=== PATIENT | female | born 1985 | race Caucasian/White ===

== ENCOUNTER 2017-02-26 18:32 | Emergency (ER) | payer BC ==
[~2017-02-26] VITALS: Ht 167.6 cm; Wt 68.2 kg
[2017-02-26 18:35] VITALS: TEMP 98
[2017-02-26] MEDS ORDERED: LEXAPRO20 MG PO (18:37)
[2017-02-26] MEDS ORDERED: SEROQUEL300 MG PO (18:38)
[2017-02-26] MEDS ORDERED: SEROQUEL50 MG PO (18:38)
[2017-02-26] MEDS ORDERED: MINIPRESS2 MG (18:38)
[2017-02-26 18:53] LABS: BASO % 0.5 % (0.0-2.0); EOS # 0.2 (0.0-0.7); EOS % 3.4 % (0-4.0); GRAN # 3.3 (1.4-6.5); GRAN % 57.8 % (42.2-75.2); LYMPH # 1.7 (1.2-3.4); LYMPH % 29.9 % (20.0-51.0); MEAN CELL VOLUME 73 fl (80.0-100.0); MEAN CORPUSCULAR HGB CONC 31 g/dl (33.0-37.0); MEAN PLATELET VOLUME 9.5 fl (7.4-10.4); MONO # 0.5 (0.1-0.6); PLATELET COUNT 319 K/mm3 (130-400); RED BLOOD COUNT 4.42 M/mm3 (4.10-5.30); REDCELL DISTRIBUTION WIDTH-CV 15.4 % (11.5-14.5); WHITE BLOOD COUNT 5.6 K/mm3 (4.8-10.8)
[2017-02-26 19:00] LABS: HEMATOCRIT 32.1 % (37.0-47.0); HEMOGLOBIN 9.9 g/dl (12.5-16.0); MEAN CORPUSCULAR HEMOGLOBIN 22 pg (27.0-31.0)
[2017-02-26 19:07] LABS: ANION GAP 15 mmol/L (7-16); BLOOD UREA NITROGEN 13 mg/dL (7-17); CARBON DIOXIDE 23 mmol/L (22-30); CHLORIDE 105 mmol/L (98-107); CREATININE, serum 0.72 mg/dL (0.52-1.25); GLUCOSE 85 mg/dL (74-106); POTASSIUM 3.5 mmol/L (3.4-5.0); SODIUM 142 mmol/L (137-145)
[2017-02-26 19:23] LABS: PROLACTIN 19.2 ng/mL (3.0-18.6)
[2017-02-26 19:28] LABS: TROPONIN-I < 0.012 ng/mL (0.000-0.034)
[2017-02-26 19:57] LABS: AMPHETAMINE URINE NEGATIVE; BARBITURATES URINE NEGATIVE; BENZODIAZEPINES URINE NEGATIVE; BUPRENORPHINE URINE NEGATIVE; METHADONE URINE NEGATIVE; OPIATES URINE NEGATIVE; OXYCODONE URINE NEGATIVE; PHENCYCLIDINE URINE NEGATIVE; PROPOXYPHENE URINE NEGATIVE; THC CANNABINOIDS URINE NEGATIVE
[2017-02-26 20:29] VITALS: BP 124/87; PULSE 76
== END 2017-02-26 20:30 | disposition home or self-care (01) ==
LOC: COL.ER 18:32
PROVIDERS: Emergency Medicine
DX: R55 Syncope and collapse (principal); R07.9 Chest pain, unspecified; R53.1 Weakness; R51 Headache; F32.9 Major depressive disorder, single episode, unspecified; F41.9 Anxiety disorder, unspecified
CPT/HCPCS: J7030

== ENCOUNTER 2017-06-05 23:21 | Emergency (ER) | payer BC ==
[~2017-06-05] VITALS: Ht 162.6 cm; Wt 72.7 kg
[~2017-06-05 23:21] MED LIST: LEXAPRO20 MG PO; MINIPRESS2 MG; SEROQUEL300 MG PO; SEROQUEL50 MG PO
[2017-06-05 23:25] VITALS: TEMP 98
[2017-06-05] MEDS ORDERED: MINIPRESS 1M1 MG/CAP PO (23:33)
[2017-06-05] MEDS ORDERED: LEXAPRO 5MG5 MG PO (23:33)
[2017-06-05] MEDS ORDERED: PREDNISONE10 MG PO (23:34)
[2017-06-05] MEDS ORDERED: BRINTELLIX20 (23:35)
[2017-06-05] MEDS ORDERED: SEROQUEL300 MG PO (23:36)
[2017-06-05] MEDS ORDERED: FLEXERIL5 MG PO (23:37)
[2017-06-05 23:51] LABS: HEMATOCRIT 37.1 % (37.0-47.0); MEAN CELL VOLUME 80 fl (80.0-100.0); MEAN CORPUSCULAR HEMOGLOBIN 25 pg (27.0-31.0); MEAN CORPUSCULAR HGB CONC 32 g/dl (33.0-37.0); MEAN PLATELET VOLUME 8.7 fl (7.4-10.4); PLATELET COUNT 196 K/mm3 (130-400); RED BLOOD COUNT 4.65 M/mm3 (4.10-5.30); WHITE BLOOD COUNT 5.1 K/mm3 (4.8-10.8)
[2017-06-05 23:55] LABS: HEMOGLOBIN 11.8 g/dl (12.5-16.0)
[2017-06-05 23:58] LABS: ADD PATHOLOGY DIFF REVIEW NO
[2017-06-06 00:05] LABS: ANISOCYTOSIS 2+; BAND 26 % (0-10); EOSINOPHIL 2 % (0-4); MICROCYTOSIS 1+; NEUTROPHILS 30 % (42.0-75.2); PLATELET ESTIMATE NORMAL (NORMAL); TOTAL CELLS COUNTED 100
[2017-06-06 00:17] LABS: ADJUSTED CALCIUM 9.2 mg/dL (8.4-10.2); ALANINE AMINOTRANSFERASE 118 U/L (9-52); ALKALINE PHOSPHATASE 158 U/L (50-136); ANION GAP 10 mmol/L (7-16); B-TYPE NATRIURETIC PEPTIDE 12 pg/mL (0-125); BILIRUBIN,TOTAL 0.3 mg/dL (0.0-1.0); BLOOD UREA NITROGEN 8 mg/dL (7-17); CALCIUM 9.2 mg/dL (8.4-10.2); CARBON DIOXIDE 24 mmol/L (22-30); CHLORIDE 106 mmol/L (98-107); CREATINE KINASE 45 U/L (30-135); CREATININE, serum 0.74 mg/dL (0.52-1.25); GLUCOSE 94 mg/dL (74-106); POTASSIUM 4.5 mmol/L (3.4-5.0); PROLACTIN 10.7 ng/mL (3.0-18.6); SODIUM 140 mmol/L (137-145); TOTAL PROTEIN 7.4 gm/dL (6.4-8.2)
[2017-06-06 00:18] LABS: TROPONIN-I < 0.012 ng/mL (0.000-0.034)
[2017-06-06 01:21] VITALS: BP 122/80; PULSE 84
== END 2017-06-06 01:22 | disposition home or self-care (01) ==
LOC: COL.ER 23:21
PROVIDERS: Emergency Medicine
DX: R55 Syncope and collapse (principal); F41.9 Anxiety disorder, unspecified; Z32.02 Encounter for pregnancy test, result negative
CPT/HCPCS: J1885; J2060; J7030

== ENCOUNTER → 2017-10-30 | Outpatient (CLI) | payer BC ==
[~2017-10-30] MED LIST changes: +BRINTELLIX20; +CRUTCHES MC; +FLEXERIL5 MG PO; +LEXAPRO 5MG5 MG PO; +MINIPRESS 1M1 MG/CAP PO; +PREDNISONE10 MG PO
== END ==
LOC: COL.RAD 09:05
DX: R55 Syncope and collapse (principal)
CPT/HCPCS: A9585

== ENCOUNTER → 2017-10-31 | Outpatient (CLI) | payer BC | LOC: COL.RAD 09:01 | DX: M48.04 Spinal stenosis, thoracic region (principal); M51.24 Other intervertebral disc displacement, thoracic region; M47.817 Spondylosis without myelopathy or radiculopathy, lumbosacral region; M47.814 Spondylosis without myelopathy or radiculopathy, thoracic region; M54.42 Lumbago with sciatica, left side; M54.41 Lumbago with sciatica, right side ==

== ENCOUNTER 2018-01-21 10:55 | Outpatient (CLI) | payer BC ==
[~2018-01-21] VITALS: Ht 165.2 cm; Wt 72.7 kg
[2018-01-21 11:43] VITALS: BP 125/73; PULSE 78; TEMP 98.1
== END 2018-01-21 14:00 | disposition home or self-care (01) ==
LOC: COL.CAR 10:55
DX: R55 Syncope and collapse (principal); F32.9 Major depressive disorder, single episode, unspecified; F41.9 Anxiety disorder, unspecified; F43.10 Post-traumatic stress disorder, unspecified; Z88.8 Allergy status to other drugs, medicaments and biological substances; Z79.82 Long term (current) use of aspirin; Z82.49 Family history of ischemic heart disease and other diseases of the circulatory system

== ENCOUNTER 2018-02-02 14:59 | Emergency (ER) | payer BC ==
[~2018-02-02] VITALS: Ht 167.6 cm; Wt 72.7 kg
[2018-02-02 15:01] VITALS: TEMP 98.7
[2018-02-02 15:33] LABS: BASO % 0.3 % (0.0-2.0); EOS # 0.1 (0.0-0.7); EOS % 1.7 % (0-4.0); GRAN # 5.4 (1.4-6.5); GRAN % 69.4 % (42.2-75.2); HEMATOCRIT 37.8 % (37.0-47.0); HEMOGLOBIN 13.3 g/dl (12.5-16.0); LYMPH # 1.7 (1.2-3.4); LYMPH % 22.2 % (20.0-51.0); MEAN CELL VOLUME 87 fl (80.0-100.0); MEAN CORPUSCULAR HEMOGLOBIN 31 pg (27.0-31.0); MEAN CORPUSCULAR HGB CONC 35 g/dl (33.0-37.0); MEAN PLATELET VOLUME 9.1 fl (7.4-10.4); MONO # 0.5 (0.1-0.6); MONO % 6.1 % (1.7-9.3); PLATELET COUNT 243 K/mm3 (130-400); RED BLOOD COUNT 4.35 M/mm3 (4.10-5.30); REDCELL DISTRIBUTION WIDTH-CV 11.9 % (11.5-14.5)
[2018-02-02 15:41] LABS: ALBUMIN 4.2 gm/dL (3.5-5.0); BILIRUBIN,TOTAL 0.5 mg/dL (0.0-1.0); CALCIUM 9.6 mg/dL (8.4-10.2); CREATININE, serum 0.66 mg/dL (0.52-1.25); TOTAL PROTEIN 8.1 gm/dL (6.4-8.2)
[2018-02-02 17:36] VITALS: BP 120/84; PULSE 60
== END 2018-02-02 17:43 | disposition home or self-care (01) ==
LOC: COL.ER 14:59
PROVIDERS: Nurse Practitioner
DX: R06.02 Shortness of breath (principal); F32.9 Major depressive disorder, single episode, unspecified; F41.9 Anxiety disorder, unspecified; Z87.42 Personal history of other diseases of the female genital tract; Z88.8 Allergy status to other drugs, medicaments and biological substances; Z79.52 Long term (current) use of systemic steroids
CPT/HCPCS: Q9967

== ENCOUNTER → 2018-07-06 | Outpatient (CLI) | payer BC | LOC: COL.RAD 06:59 | DX: J98.4 Other disorders of lung (principal); J90 Pleural effusion, not elsewhere classified; R91.1 Solitary pulmonary nodule | CPT/HCPCS: Q9967 ==

== ENCOUNTER → 2018-08-11 | Outpatient (CLI) | payer BC | LOC: COL.RAD 07:28 | DX: M54.2 Cervicalgia (principal); R20.2 Paresthesia of skin; R20.0 Anesthesia of skin ==

== ENCOUNTER → 2018-09-14 | Outpatient (CLI) | payer BC | LOC: COL.RAD 07:36 | DX: M51.17 Intervertebral disc disorders with radiculopathy, lumbosacral region (principal) ==

== ENCOUNTER → 2018-10-26 | Outpatient (CLI) | payer BC ==
[~2018-10-26] VITALS: Ht 162.6 cm; Wt 73.0 kg
[~2018-10-26] MED LIST changes: +CYMBALTA 30MG30 MG PO; +CYMBALTA 60MG60 MG PO; +LYRICA 100MG C100 M1 PO; +SEROQUEL XR150 MG PO
[2018-10-26 07:09] VITALS: BP 130/79; PULSE 80
[2018-10-26 08:20] VITALS: BP 128/89; PULSE 66
--- NOTE | 2018-10-26 08:45 | NUR ---
Pt denies pain at this time. Pt able to ambulate with out difficulty. Copy of discharge instructions given to pt and verbalized understanding of instructions. Pt up and into car without assistance.
== END ==
LOC: COL.RAD 06:53
DX: M54.41 Lumbago with sciatica, right side (principal); G89.29 Other chronic pain
CPT/HCPCS: J3301

== ENCOUNTER → 2018-11-19 | Outpatient (CLI) | payer BC ==
[~2018-11-19] VITALS: Ht 162.6 cm; Wt 72.3 kg
[2018-11-19 08:58] VITALS: BP 130/84; PULSE 81
[2018-11-19 09:55] VITALS: BP 132/81; PULSE 73
--- NOTE | 2018-11-19 10:17 | NUR ---
Pt out to car per wheelchair. Denies pain at this time. Pt able to ambulate without assistance. Pt into car without difficulty.
== END ==
LOC: COL.RAD 08:35
DX: M54.41 Lumbago with sciatica, right side (principal); G89.29 Other chronic pain
CPT/HCPCS: J3301; Q9965

== ENCOUNTER 2018-12-21 19:42 | Emergency (ER) | payer BC ==
[~2018-12-21] VITALS: Ht 162.6 cm; Wt 72.7 kg
[2018-12-21 19:59] VITALS: BP 132/83; TEMP 98.3
[2018-12-21] MEDS ORDERED: AMOXICILLIN 8751 TAB PO (22:23)
[2018-12-21 23:04] VITALS: PULSE 76
== END 2018-12-21 23:04 | disposition home or self-care (01) ==
LOC: COL.ER 19:42
DX: S01.85XA Open bite of other part of head, initial encounter (principal); Z23 Encounter for immunization; W54.0XXA Bitten by dog, initial encounter; Y92.009 Unspecified place in unspecified non-institutional (private) residence as the place of occurrence of the external cause

== ENCOUNTER → 2019-01-11 | Outpatient (CLI) | payer BC ==
[~2019-01-11] VITALS: Ht 162.6 cm; Wt 76.2 kg
[~2019-01-11] MED LIST changes: +AMOXICILLIN 8751 TAB PO
[2019-01-11 07:25] VITALS: BP 120/82; PULSE 72
[2019-01-11 08:45] VITALS: BP 125/86; PULSE 75
--- NOTE | 2019-01-11 09:08 | NUR ---
pt is taken down to pov in wheelchair. able to ambulate to pov with out incident
== END ==
LOC: COL.RAD 07:00
DX: M54.41 Lumbago with sciatica, right side (principal); G89.29 Other chronic pain
CPT/HCPCS: J3301

== ENCOUNTER 2019-11-03 07:00 | Outpatient (RCR) | payer BC | END 2020-01-09 | disposition home or self-care (01) | LOC: WSPT | DX: M79.7 Fibromyalgia (principal) ==

== ENCOUNTER → 2020-02-14 | Outpatient (CLI) | payer BC | LOC: COL.RAD 08:07 | DX: M51.17 Intervertebral disc disorders with radiculopathy, lumbosacral region (principal); M47.27 Other spondylosis with radiculopathy, lumbosacral region; M79.604 Pain in right leg; M79.605 Pain in left leg ==

== ENCOUNTER 2021-06-01 13:55 | Outpatient (CLI) | payer BC ==
[2021-06-01 14:15] VITALS: BP 100/62; PULSE 58; TEMP 97.9
[2021-06-01 16:23] VITALS: BP 115/73; PULSE 63
--- NOTE | 2021-06-01 16:29 | NUR ---
INT DC'd with catheter intact. Pt steady on feet, states she feels improved following IVF. She is escorted out to elevator.
== END 2021-06-07 17:04 ==
LOC: EUO 13:55
DX: E86.0 Dehydration (principal)
CPT/HCPCS: J7030

== ENCOUNTER → 2022-02-18 | Outpatient (CLI) | payer BC | LOC: COL.RAD 12:33 | DX: M51.34 Other intervertebral disc degeneration, thoracic region (principal); M51.24 Other intervertebral disc displacement, thoracic region; J90 Pleural effusion, not elsewhere classified; M54.12 Radiculopathy, cervical region; M54.81 Occipital neuralgia ==

== ENCOUNTER 2022-06-15 21:57 | Emergency (ER) | payer BC ==
[~2022-06-15] VITALS: Ht 162.6 cm; Wt 75.0 kg
[2022-06-15 22:02] VITALS: BP 142/95; TEMP 97.1
[2022-06-15] MEDS ORDERED: NORVASC 10MG10 MG PO (22:14)
[2022-06-15] MEDS ORDERED: METHOTREXA2.5 MG/TAB PO (22:16)
[2022-06-15] MEDS ORDERED: PLAQUENIL 200M200 MG PO (22:17)
[2022-06-15] MEDS ORDERED: FOLIC ACID 11 MG/TA1 PO (22:17)
[2022-06-15] MEDS ORDERED: CELEBREX 200MG200 MG PO (22:18)
[2022-06-15] MEDS ORDERED: MINIPRESS 5M5 MG/CAP PO (22:19)
[2022-06-15] MEDS ORDERED: ESTARYLLA 35 MC1 TAB (22:19)
[2022-06-15] MEDS ORDERED: BUSPAR 30MG30 MG/TAB PO (22:19)
[2022-06-15 23:09] LABS: BASO % 0.6 % (0.0-2.0); EOS # 0.2 K/mm3 (0.0-0.7); EOS % 3.1 % (0.0-4.0); GRAN # 4.1 K/mm3 (1.4-6.5); GRAN % 57.8 % (42.2-75.2); HEMOGLOBIN 12.6 g/dl (12.5-16.0); LYMPH # 2.4 K/mm3 (1.2-3.4); LYMPH % 33.1 % (20.0-51.0); MEAN CELL VOLUME 88 fl (80.0-100.0); MEAN CORPUSCULAR HEMOGLOBIN 30 pg (27-31); MEAN CORPUSCULAR HGB CONC 35 g/dl (33.0-37.0); MEAN PLATELET VOLUME 8.9 fl (7.4-10.4); MONO # 0.4 K/mm3 (0.1-0.6); MONO % 5.3 % (1.7-9.3); PLATELET COUNT 269 K/mm3 (130-400); RED BLOOD COUNT 4.14 M/mm3 (4.10-5.30); REDCELL DISTRIBUTION WIDTH-CV 12.5 % (11.5-14.5)
[2022-06-15 23:15] LABS: PROTHROMBIN TIME 11.9 SECONDS (9.7-12.8)
[2022-06-15 23:22] LABS: HEMATOCRIT 36.5 % (37.0-47.0)
[2022-06-15 23:23] LABS: D-DIMER < 200.00 ng/mLDDu (200-230)
[2022-06-15 23:35] LABS: ALBUMIN 3.8 gm/dL (3.5-5.0); BILIRUBIN,TOTAL 0.3 mg/dL (0.2-1.2); CREATININE, serum 0.84 mg/dL (0.57-1.11); POTASSIUM 3.7 mmol/L (3.5-4.5); TOTAL PROTEIN 7.1 gm/dL (6.2-8.1)
[2022-06-16 00:02] VITALS: PULSE 61
== END 2022-06-16 00:09 | disposition home or self-care (01) ==
LOC: COL.ER 21:57
PROVIDERS: Nurse Practitioner
DX: M79.662 Pain in left lower leg (principal)

== ENCOUNTER → 2022-06-18 | Outpatient (CLI) | payer BC ==
[~2022-06-18] MED LIST changes: +BUSPAR 30MG30 MG/TAB PO; +CELEBREX 200MG200 MG PO; +ESTARYLLA 35 MC1 TAB; +FOLIC ACID 11 MG/TA1 PO; +METHOTREXA2.5 MG/TAB PO; +MINIPRESS 5M5 MG/CAP PO; +NORVASC 10MG10 MG PO; +PLAQUENIL 200M200 MG PO
== END ==
LOC: COL.VAS 08:08
DX: M79.662 Pain in left lower leg (principal)

== ENCOUNTER → 2023-02-06 | Outpatient (CLI) | payer BC | LOC: COL.PUL 10:40 | DX: R06.02 Shortness of breath (principal) ==

== ENCOUNTER 2024-02-10 12:18 | Outpatient (CLI) | payer BC ==
[~2024-02-10] VITALS: Ht 162.6 cm; Wt 79.2 kg
[~2024-02-10 12:18] MED LIST changes: +K-DUR20 MEQ PO
[2024-02-10] MEDS ORDERED: ACTEMRA162 MG/0.9 SQ (12:54)
[2024-02-10] MEDS ORDERED: AMOXICILLIN 8751 TAB PO (12:54)
[2024-02-10] MEDS ORDERED: ESTARYLLA 35 MC1 TAB PO (12:55)
[2024-02-10] MEDS ORDERED: FLORAJEN A20 Billion PO (12:55)
[2024-02-10] MEDS ORDERED: SEROQUEL 1100 MG/TAB PO (12:56)
[2024-02-10] MEDS ORDERED: PLAQUENIL 200M200 MG PO (12:58)
[2024-02-10 12:59] VITALS: BP 122/84; PULSE 79; TEMP 97.8
[2024-02-10 14:15] VITALS: BP 117/75; PULSE 68; PULSE 69
[2024-02-10 14:30] VITALS: BP 117/77; PULSE 56
[2024-02-10 14:45] VITALS: BP 116/76; PULSE 64
[2024-02-10 15:00] VITALS: BP 117/80; PULSE 66
--- NOTE | 2024-02-10 15:15 | NUR ---
DC instructions reviewed with pt and her friend. Both express understanding. Pt remains free of complaints. She has sipped water during recovery period. She is able to sit up and ambulate in room without headache or other concern. She is assisted out to friend's car by wheelchair.
[2024-02-10 15:43] LABS: GLUCOSE,CSF 53 mg/dL (40-70); TOTAL PROTEIN,CSF 19 mg/dL (15-45)
[2024-02-10 17:07] LABS: CSF APPEARANCE CLEAR; CSF COLOR COLORLESS; CSF MONONUCLEAR 100 % (70-100); CSF POLYMORPHONUCLEAR 0 % (0-6); CSF RBC 8 /mm3 (0-0)
[2024-02-10 17:19] LABS: CSF COLOR COLORLESS
[2024-02-10 17:20] LABS: CSF APPEARANCE CLEAR; CSF MONONUCLEAR 100 % (70-100); CSF POLYMORPHONUCLEAR 0 % (0-6); CSF RBC 9 /mm3 (0-0)
== END 2024-02-10 15:15 | disposition home or self-care (01) ==
LOC: COL.RAD 12:18
PROVIDERS: Family Medicine
DX: R93.89 Abnormal findings on diagnostic imaging of other specified body structures (principal)